=== PATIENT | male | born 1945 | race Caucasian/White ===

== ENCOUNTER 2018-02-03 15:37 | Inpatient (IN) ==
[2018-02-03] MEDS ORDERED: Piperacil/Tazo 3.375 GM Premix 50 ML IV.SIG ONE (17:43)
--- NOTE | 2018-02-03 18:03 | ED ---
HPI General Chief Complaint: Abdominal Pain Stated Complaint: Abd Pain/vomiting/sent by dr Time Seen by Provider: 02/03/18 17:38 Source: patient, family, RN notes reviewed and old records reviewed Mode of arrival: ambulatory Limitations: no limitations History of Present Illness HPI narrative: 72 y/o male presents with abdominal pain and nausea for the past 10 days. He had an abnormal CAT scan and white count as an outpatient was sent here for further care. He provides paperwork that shows his white count was 13.[address] scan of his abdomen showed abnormal subcapsular fluid collection measuring up to 7.3 cm with another inferior to the right liver measuring 3.6 cm. There is induration surrounding fat concerning for infection. Patient denies any other concurrent complaints. Quality pain is sharp. Severity is moderate. He denies specific modifying factors. he takes plavix for his history of CABG, no stents or strokes Related Data Home Medications Medication Instructions Recorded Confirmed aspirin [Aspirin Low Dose] 81 mg PO QPM 01/27/18 02/03/18 clopidogrel [Plavix] 75 mg PO DAILY 01/27/18 02/03/18 coenzyme Q10 [Co Q-10] 100 mg PO QPM 01/27/18 02/03/18 metoprolol tartrate 25 mg PO BID 01/27/18 02/03/18 [id number] acid-lutein [Centrum 1 tab PO DAILY 01/27/18 02/03/18 Silver] niacin [Slo-Niacin] 500 mg PO BID 01/27/18 02/03/18 nitroglycerin 0.4 mg SUBLINGUAL Q5-15M PRN 01/27/18 02/03/18 omega-3 fatty acids-fish oil [Fish 1 cap PO BID 01/27/18 02/03/18 Oil] pregabalin [Lyrica] 100 mg PO BID 01/27/18 02/03/18 simvastatin 5 mg PO Q OTHER DAY 01/27/18 02/03/18 timolol maleate [Timoptic] 1 drp EACH EYE DAILY 02/03/18 02/03/18 Allergies Allergy/AdvReac Type Severity Reaction Status Date / Time Decongestants Allergy Mild Rash Uncoded 02/03/18 17:36 Review of Systems ROS: all other systems reviewed are negative [facility] Medical History Medical History Glaucoma (Acute) HLD (hyperlipidemia) (Acute) HTN (hypertension) (Acute) Mitral regurgitation (Acute) Peripheral neuropathy (Acute) Tricuspid regurgitation (Acute) Surgical History Surgical History Hx of CABG (Acute) Social History Social History Substance History: No History of Abuse Second Hand Smoke Exposure: No Smoking Status: Former smoker How Often Do You Have a Drink Containing Alcohol: 2 to 3 times a week Immunization History Tetanus Immunization: <5 Years Hx Influenza Vaccine This Season: Yes Exam Narrative Exam Narrative: GENERAL: 72 y/o male in no apparent distress SKIN: Focused skin assessment warm/dry. HEAD: Atraumatic. Normocephalic. EYES: Pupils equal and round. No scleral icterus. No injection or drainage. ENT: No nasal bleeding or discharge. Mucous membranes pink and moist. NECK: Trachea midline. CARDIOVASCULAR: Regular rate and rhythm. RESPIRATORY: No accessory muscle use GASTROINTESTINAL: Abdomen soft, ttp in ruq, nondistended. no rebound MUSCULOSKELETAL: No obvious deformities. No clubbing. No cyanosis. NEUROLOGICAL: Awake and alert. Motor grossly within normal limits. Normal speech. PSYCHIATRIC: Appropriate mood and affect; insight and judgment normal. Course Reevaluation(s) Reevaluation #1: Patient updated and agrees to admission Consultations Consultation #1: dr lawler states keep n.p.o. after midnight and will do procedure in the morning. Hold any anticoagulation Consultation #2: dr whyte agrees to admit Initial Documented Vital Signs Temperature 98 F 02/03/18 15:42 Pulse Rate 120 H 02/03/18 15:42 Respiratory Rate 25 H 02/03/18 15:42 Blood Pressure 178/84 H 02/03/18 15:42 Pulse Oximetry 99 02/03/18 15:42 Last Documented Vital Signs Temperature 98 F 02/03/18 15:42 Pulse Rate 110 H 02/03/18 17:34 Respiratory Rate 15 02/03/18 17:34 Blood Pressure 171/93 H 02/03/18 17:34 Pulse Oximetry 95 02/03/18 17:36 Medical Decision Making MDM Narrative Medical decision making narrative: Patient with abnormal CT and leukocytosis as an outpatient will discuss with interventional radiology about possible percutaneous drainage and dose with Zosyn Medical Screen Exam Complete: Yes Emergency Medical Condition: Yes Differential Diagnosis Differential Diagnosis: Abscess, cyst, effusion Lab Data Lab results reviewed: Yes I reviewed the patient's lab results. Result diagrams: 02/03/18 16:44 02/03/18 16:44 Lab Results 02/03/18 02/03/18 02/03/18 Range/Units 16:44 16:44 17:05 WBC 17.7 H (4.0-11.0) th/mm3 RBC 4.00 L (4.50-5.90) mil/mm3 Hgb 13.4 (13.0-17.0) gm/dL Hct 39.2 (39.0-51.0) % MCV 97.9 (80.0-100.0) fL MCH 33.5 (27.0-34.0) pg MCHC 34.2 (32.0-36.0) % RDW 15.0 (11.6-17.2) % Plt Count 517 H D (150-450) th/mm3 MPV 7.9 (7.0-11.0) fL Prelim Diff (Auto) Slide review pending Neut % (Auto) 84.1 H (16.0-70.0) % Lymph % (Auto) 7.4 L (9.0-44.0) % [place] % (Auto) 7.5 (0.0-8.0) % Eos % (Auto) 0.8 (0.0-4.0) % Baso % (Auto) 0.2 (0.0-2.0) % Neut # (Auto) 14.9 H (1.8-7.7) th/mm3 Lymph # (Auto) 1.3 (1.0-4.8) th/mm3 [place] # (Auto) 1.3 H (0.0-0.9) th/mm3 Eos # (Auto) 0.1 (0.0-0.4) th/mm3 Baso # (Auto) 0.0 (0.0-0.2) th/mm3 Differential Comment . Sodium 135 L (136-145) meq/L Potassium 4.7 (3.5-5.1) meq/L Chloride 97 L (98-107) meq/L Carbon Dioxide 26.5 (21.0-32.0) meq/L Anion Gap 12 (5-15) meq/L BUN 16 (7-18) mg/dL Creatinine 1.06 (0.60-1.30) mg/dL Estimated GFR 68 L (>89) mL/min Random Glucose 129 H (74-106) mg/dL Calcium 8.6 (8.5-10.1) mg/dL Total Bilirubin 0.8 (0.2-1.0) mg/dL AST 81 H (15-37) U/L ALT 73 (12-78) U/L Alkaline Phosphatase 136 H (45-117) U/L Total Protein 8.2 (6.4-8.2) g/dL Albumin 2.5 L (3.4-5.0) g/dL Lipase 124 (73-393) U/L Urine Color Yellow (Yellw/Straw) Urine Clarity Hazy H (Clear) Urine pH 5.0 (5.0-8.5) Ur Specific [place] 1.020 (1.002-1.035) Urine Protein Negative (Neg-Trace) mg/dL Urine Glucose (UA) Negative (Negative) mg/dL Urine Ketones Trace H (Negative) mg/dL Urine Occult Blood Negative (Negative) Urine Nitrate Negative (Negative) Urine Bilirubin Negative (Negative) Urine Urobilinogen Less than 2 (Less than 2) mg/dL Ur Leukocyte Esterase Negative (Negative) Urine RBC 1 (0-3) /hpf Urine WBC 1 (0-5) /hpf Ur Squamous Epith Cells <1 (0-5) /hpf Urine Mucus Few H (Occasional) /lpf Micro UA Comment Culture not ind Ur Microscopic Review Not Reportable Urine Culture Comments Culture not ind Discharge Plan Discharge Disposition Patient Disposition: 30 Still Patient Discharge Condition Condition: Stable Discharge Details Diagnosis: Intra-abdominal collection, Leukocytosis Physicians Team ED Provider: Jo Jose Primary Care Provider: UNKNOWN, Rxs /Orders / Referrals /Forms Prescriptions: No Action clopidogrel [Plavix] 75 mg Tablet 75 mg PO DAILY RF: 0 aspirin [Aspirin Low Dose] 81 mg Tablet,Delayed Release (Dr/Ec) 81 mg PO QPM RF: 0 simvastatin 5 mg Tablet 5 mg PO Q OTHER DAY RF: 0 nitroglycerin 0.4 mg Tablet, Sublingual 0.4 mg SUBLINGUAL Q5-15M PRN (Reason: Chest Pain) RF: 0 coenzyme Q10 [Co Q-10] 100 mg Capsule 100 mg PO QPM RF: 0 metoprolol tartrate 25 mg Tablet 25 mg PO BID RF: 0 pregabalin [Lyrica] 100 mg Capsule 100 mg PO BID RF: 0 omega-3 fatty acids-fish oil [Fish Oil] 360-1,200 mg Capsule 1 cap PO BID RF: 0 niacin [Slo-Niacin] 500 mg Tablet Extended Release 500 mg PO BID RF: 0 [id number]-[id number] acid-lutein [Centrum Silver] 400-250 mcg Tablet,Chewable 1 tab PO DAILY RF: 0 timolol maleate [Timoptic] 0.5 % Drops 1 drp EACH EYE DAILY RF: 0 Status ED Status: Admitted Patient
[2018-02-03 18:04] LABS: Baso % (Auto) 0.2 % (0.0-2.0); Eos # (Auto) 0.1 th/mm3 (0.0-0.4); Eos % (Auto) 0.8 % (0.0-4.0); Hematocrit 39.2 % (39.0-51.0); Hemoglobin 13.4 gm/dL (13.0-17.0); Lymph # (Auto) 1.3 th/mm3 (1.0-4.8); Lymph % (Auto) 7.4 % (9.0-44.0); Mean Corpuscular HGB Conc 34.2 % (32.0-36.0); Mean Corpuscular Hemoglobin 33.5 pg (27.0-34.0); Mean Corpuscular Volume 97.9 fL (80.0-100.0); Mean Platelet Volume 7.9 fL (7.0-11.0); Mono # (Auto) 1.3 th/mm3 (0.0-0.9); Mono % (Auto) 7.5 % (0.0-8.0); Neut # (Auto) 14.9 th/mm3 (1.8-7.7); Neut % (Auto) 84.1 % (16.0-70.0); Platelet Count 517 th/mm3 (150-450); White Blood Count 17.7 th/mm3 (4.0-11.0)
[2018-02-03 18:17] LABS: Bilirubin,Urine Negative (Negative); Clarity,Urine Hazy (Clear); Color,Urine Yellow (Yellw/Straw); Glucose,Urine (UA) Negative (Negative); Leukocyte Esterase,Urine Negative (Negative); Mucus,Urine Few /lpf (Occasional); Nitrite,Urine Negative (Negative); Squamous Epithelial Cell,Urine <1 /hpf (0-5)
[2018-02-03 18:23] LABS: Alkaline Phosphatase 136 U/L (45-117); Total Protein 8.2 g/dL (6.4-8.2)
[2018-02-03 18:32] LABS: Alanine Aminotransferase 73 U/L (12-78); Albumin 2.5 g/dL (3.4-5.0); Anion Gap 12 meq/L (5-15); Blood Urea Nitrogen 16 mg/dL (7-18); Calcium 8.6 mg/dL (8.5-10.1); Carbon Dioxide 26.5 meq/L (21.0-32.0); Chloride 97 meq/L (98-107); Glomerular Filtration Rate 68 mL/min (>89); Glucose,Random 129 mg/dL (74-106); Lipase 124 U/L (73-393); Sodium 135 meq/L (136-145)
[2018-02-03 18:33] LABS: Aspartate Aminotransferase 81 U/L (15-37); Potassium 4.7 meq/L (3.5-5.1)
[2018-02-03 19:21] LABS: Platelet Morphology Normal (Normal)
[2018-02-03 19:22] LABS: Toxic Granulation 2+
[2018-02-03] MEDS ORDERED: Morphine Inj 4 MG/ML Vial IV.PUSH PRN (19:30)
[2018-02-03] MEDS ORDERED: Acetaminophen 325 MG Tablet PO PRN (19:30)
--- NOTE | 2018-02-03 20:05 | P.HP ---
History of Present Illness Service: [facility] Primary Care Physician: UNKNOWN History of Present Illness: 72-year-old male with a past medical history significant for coronary artery disease, hypertension, hyperlipidemia and neuropathy presents to the emergency department for evaluation of an abnormal CT scan. Patient reports that approximately 10 days ago after attending a barbecue he had abdominal cramping and pain that has been persistent since that time. He reports his pain is sometimes in his right upper quadrant and sometimes in other areas of his abdomen and that it often will radiate to his right flank. He reports nausea and vomiting. Also complains of night sweats. He has had a low-grade fever for the past week. He was seen by his primary care provider who ordered outpatient labs and a CT scan however the patient underwent cardiac catheterization 1 week ago prior to completing these tests. Outpatient CT scan performed today concerning for 2 liver abscesses. Laboratory values significant for leukocytosis. Patient denies chest pain or shortness of breath. No lateralizing signs/symptoms. Inpatient Certification: I certify that the inpatient services were ordered in accordance with Medicare regulations governing the order. This includes certification that hospital inpatient services are reasonable and necessary and in the case of services not specified as inpatient-only under 42 CFR 419.22(n), that they are appropriately provided as inpatient services in accordance to with the 2-midnight benchmark under 43 CFR 412.3(e) Estimated Total Length of Stay (Days): 3 Plans for Post Hospital Care: Home Review of Systems All other systems reviewed negative except as stated [facility] - History History Provided By: Patient - Medical History Medical History: Medical History (Last Updated 02/03/18 @ 19:57 by Caitlyn Borrero MD) Coronary artery disease Glaucoma HLD (hyperlipidemia) HTN (hypertension) Mitral regurgitation Peripheral neuropathy Tricuspid regurgitation - Surgical History Surgical History: Surgical History (Last Updated 02/03/18 @ 19:58 by Caitlyn Borrero MD) History of appendectomy History of cataract surgery History of foot surgery History of tonsillectomy Hx of CABG - Family History Family History: Family History (Last Updated 02/03/18 @ 19:58 by Caitlyn Borrero MD) Other Coronary artery disease - Tobacco History Second Hand Smoke Exposure: No Tobacco Use In Past 30 Days: No Smoking Status: Former smoker - Alcohol History How Often Do You Have a Drink Containing Alcohol: 2 to 3 times a week - Substance Use History Substance History: No History of Abuse - Immunization History Tetanus Immunization: <5 Years Hx Influenza Vaccine This Season: Yes Medications and Allergies Active Medications: Active Medications Acetaminophen (Tylenol) 650 mg PO Q4H PRN PRN Reason: PAIN SCALE 1 TO 5 Atorvastatin Calcium (Lipitor) 20 mg PO HS JOLEEN Piperacillin/Tazobactam/Dextrose (Zosyn 3.375 Gm Premix) 50 mls @ 100 mls/hr IV.SIG Q6H JOLEEN Sodium Chloride (Ns Inj) 1,000 mls @ 100 mls/hr IV.CONT .Q10H JOLEEN Metoprolol Tartrate (Lopressor) 25 mg PO BID JOLEEN Morphine Sulfate (Morphine Inj) 2 mg IV.PUSH Q4H PRN PRN Reason: PAIN SCALE 6 TO 10 Ondansetron HCl (Zofran Inj) 4 mg IV.PUSH Q8H PRN PRN Reason: NAUSEA Allergies Allergy/AdvReac Type Severity Reaction Status Date / Time Decongestants Allergy Mild Rash Uncoded 02/03/18 17:36 Home Medications Medication Instructions Recorded Confirmed Type aspirin [Aspirin Low Dose] 81 mg PO QPM 01/27/18 02/03/18 History clopidogrel [Plavix] 75 mg PO DAILY 01/27/18 02/03/18 History coenzyme Q10 [Co Q-10] 100 mg PO QPM 01/27/18 02/03/18 History metoprolol tartrate 25 mg PO BID 01/27/18 02/03/18 History [id number]-[id number]-byosl acid-lutein [Centrum 1 tab PO DAILY 01/27/18 02/03/18 History Silver] niacin [Slo-Niacin] 500 mg PO BID 01/27/18 02/03/18 History nitroglycerin 0.4 mg SUBLINGUAL Q5-15M PRN 01/27/18 02/03/18 History omega-3 fatty acids-fish oil [Fish 1 cap PO BID 01/27/18 02/03/18 History Oil] pregabalin [Lyrica] 100 mg PO BID 01/27/18 02/03/18 History simvastatin 5 mg PO Q OTHER DAY 01/27/18 02/03/18 History timolol maleate [Timoptic] 1 drp EACH EYE DAILY 02/03/18 02/03/18 History Exam Vital signs: Vital Signs 02/03/18 15:42 02/03/18 15:46 02/03/18 17:34 Temperature 98 F Pulse Rate 120 H 112 H 110 H Respiratory Rate 25 H 16 15 Blood Pressure 178/84 H 192/97 H 171/93 H Pulse Oximetry 99 96 95 02/03/18 17:36 Temperature Pulse Rate Respiratory Rate Blood Pressure Pulse Oximetry 95 Intake & Output 02/03/18 02/03/18 02/04/18 06:59 18:59 06:59 Intake Total 50 / 50 Balance 50 / 50 Weight 84.368 kg Intake: IV 50 / 50 Zosyn 3.375 GM Premix 50 ML @ 50 / 50 100 mls/hr IV.SIG ONCE ONE Rx#: [id number] Narrative: Gen.: No acute distress Head: Normocephalic. Atraumatic. EENT: Pupils equal round and reactive to light. Nose without drainage. Airway intact. Throat without injection. Cardiovascular: Regular rate and rhythm. No murmurs, rubs or gallops. Respiratory: Lungs clear to auscultation bilaterally. No wheezes or rhonchi. Abdomen: Soft, nontender, nondistended. No peritoneal signs. Mild to moderate right upper quadrant pain with deep palpation. Musculoskeletal: No gross deformities. No edema. Skin: No obvious rashes or erythema. Neuro: Sensory and motor grossly intact. Cranial nerves II through XII grossly intact. Results - Labs CBC & Chem 7: 02/03/18 16:44 02/03/18 16:44 Labs: Laboratory Results - last 24 hr 02/03/18 02/03/18 02/03/18 16:44 16:44 17:05 WBC 17.7 H RBC 4.00 L Hgb 13.4 Hct 39.2 MCV 97.9 MCH 33.5 MCHC 34.2 RDW 15.0 Plt Count 517 H D MPV 7.9 Prelim Diff (Auto) Slide review pending Neut % (Auto) 84.1 H Lymph % (Auto) 7.4 L [place] % (Auto) 7.5 Eos % (Auto) 0.8 Baso % (Auto) 0.2 Neut # (Auto) 14.9 H Lymph # (Auto) 1.3 [place] # (Auto) 1.3 H Eos # (Auto) 0.1 Baso # (Auto) 0.0 WBC Differential . Diff Scan Auto diff confirmed Differential Comment . Toxic Granulation 2+ H Platelet Estimate High H Platelet Morphology Normal Sodium 135 L Potassium 4.7 Chloride 97 L Carbon Dioxide 26.5 Anion Gap 12 BUN 16 Creatinine 1.06 Estimated GFR 68 L Random Glucose 129 H Lactic Acid Calcium 8.6 Total Bilirubin 0.8 AST 81 H ALT 73 Alkaline Phosphatase 136 H Total Protein 8.2 Albumin 2.5 L Lipase 124 Urine Color Yellow Urine Clarity Hazy H Urine pH 5.0 Ur Specific [place] 1.020 Urine Protein Negative Urine Glucose (UA) Negative Urine Ketones Trace H Urine Occult Blood Negative Urine Nitrate Negative Urine Bilirubin Negative Urine Urobilinogen Less than 2 Ur Leukocyte Esterase Negative Urine RBC 1 Urine WBC 1 Ur Squamous Epith Cells <1 Urine Mucus Few H Micro UA Comment Culture not ind Ur Microscopic Review Not Reportable Urine Culture Comments Culture not ind 02/03/18 18:15 WBC RBC Hgb Hct MCV MCH MCHC RDW Plt Count MPV Prelim Diff (Auto) Neut % (Auto) Lymph % (Auto) [place] % (Auto) Eos % (Auto) Baso % (Auto) Neut # (Auto) Lymph # (Auto) [place] # (Auto) Eos # (Auto) Baso # (Auto) WBC Differential Diff Scan Differential Comment Toxic Granulation Platelet Estimate Platelet Morphology Sodium Potassium Chloride Carbon Dioxide Anion Gap BUN Creatinine Estimated GFR Random Glucose Lactic Acid 1.0 Calcium Total Bilirubin AST ALT Alkaline Phosphatase Total Protein Albumin Lipase Urine Color Urine Clarity Urine pH Ur Specific [place] Urine Protein Urine Glucose (UA) Urine Ketones Urine Occult Blood Urine Nitrate Urine Bilirubin Urine Urobilinogen Ur Leukocyte Esterase Urine RBC Urine WBC Ur Squamous Epith Cells Urine Mucus Micro UA Comment Ur Microscopic Review Urine Culture Comments Caprini VTE Risk Assessment Caprini VTE Risk Assessment: Moderate/High Risk (score >= 2) Caprini Risk Assessment Model: Point Value = 1 Point Value = 2 Point Value = 3 Point Value = 5 Age 41-60 Minor surgery BMI > 25 kg/m2 Swollen legs Varicose veins or History of unexplained or recurrent spontaneous Oral contraceptives or hormone replacement Sepsis (< 1 month) Serious lung disease, including pneumonia (< 1 month) Abnormal pulmonary function Acute myocardial infarction Congestive heart failure (< 1 month) History of inflammatory bowel disease Medical patient at bed rest Age 61-74 Arthroscopic surgery Major open surgery (> 45 min) Laparoscopic surgery (> 45 min) Malignancy Confined to bed (> 72 hours) Immobilizing plaster cast Central venous access Age >= 75 History of VTE Family history of VTE Factor V Leiden Prothrombin [id number] Lupus anticoagulant Anticardiolipin antibodies Elevated serum homocysteine Heparin-induced thrombocytopenia Other congenital or acquired thrombophilia Stroke (< 1 month) Elective arthroplasty Hip, pelvis, or leg fracture Acute spinal cord injury (< 1 month) Prophylaxis Regimen: Total Risk Factor Score Risk Level Prophylaxis Regimen 0-1 Low Early ambulation 2 Moderate Order ONE of the following: *Sequential Compression Device (SCD) *Heparin 5000 units SQ BID 3-4 Higher Order ONE of the following medications: *Heparin 5000 units SQ TID *Enoxaparin/Lovenox 40 mg SQ daily (WT < 150 kg, CrCl > 30 mL/min) *Enoxaparin/Lovenox 30 mg SQ daily (WT < 150 kg, CrCl > 10-29 mL/min) *Enoxaparin/Lovenox 30 mg SQ BID (WT < 150 kg, CrCl > 30 mL/min) AND/OR *Sequential Compression Device (SCD) 5 or more Highest Order ONE of the following medications: *Heparin 5000 units SQ TID (Preferred with Epidurals) *Enoxaparin/Lovenox 40 mg SQ daily (WT < 150 kg, CrCl > 30 mL/min) *Enoxaparin/Lovenox 30 mg SQ daily (WT < 150 kg, CrCl > 10-29 mL/min) *Enoxaparin/Lovenox 30 mg SQ BID (WT < 150 kg, CrCl > 30 mL/min) AND *Sequential Compression Device (SCD) Assessment and Plan - Plan Assessment/plan: 1. Liver abscess/leukocytosis CT of the abdomen/pelvis performed today at outside facility significant for abnormal subcapsular fluid collection along the lateral aspect of segment 6 measuring up to 7.3 cm. There is an additional higher density collection inferior to the tip of the right liver that measures up to 3.6 cm. There is mild induration of the surrounding fat raising suspicion for inflammation and possibly infection. There is trace fluid along the medial right liver margin as well. The 2 loculated fluid collections could be the source of the patient' s pain in appearance and suspected inflammatory changes could indicate an infectious process. Interventional radiology consulted for abscess drainage Zosyn 2. Coronary artery disease Patient underwent cardiac catheterization without intervention 1 week ago Holding aspirin and Plavix for percutaneous drainage tomorrow 3. Hypertension/hyperlipidemia Continue home metoprolol/atorvastatin FEN N.p.o. Electrolytes: Monitor and replete as needed S at 100 cc/hour Holding pharmacologic anticoagulation for percutaneous drainage tomorrow
[2018-02-03] MEDS ORDERED: Vancomycin Inj 1 GM/200 ML PIGGYBACK IV.SIG SCH (21:00)
[2018-02-03] MEDS ORDERED: Metoprolol Tartrate 25 MG Tablet PO SCH (21:00)
[2018-02-03] MEDS: Sod Chloride 0.9% Inj 1,000 ML IV.CONT SCH (21:49)
[2018-02-03] MEDS: Metoprolol Tartrate 25 MG Tablet PO SCH (21:50)
[2018-02-03] MEDS: Vancomycin Inj 1,000 MG in Sodium Chlor 0.9% Inj 250 ML IV.SIG SCH (21:50)
[2018-02-03] MEDS: Piperacil/Tazo 3.375 GM Premix 50 ML IV.SIG SCH (23:49)
[2018-02-04] MEDS: Piperacil/Tazo 3.375 GM Premix 50 ML IV.SIG SCH ×4 (05:33→23:07)
[2018-02-04] MEDS: Sod Chloride 0.9% Inj 1,000 ML IV.CONT SCH ×2 (06:09→16:00)
[2018-02-04] MEDS: Metoprolol Tartrate 25 MG Tablet PO SCH ×2 (09:00→20:23)
[2018-02-04] MEDS: Timolol 0.5% Drops 5 ML Bottle EACH EYE SCH (09:00)
[2018-02-04] MEDS ORDERED: Lidocaine 1%/Epinephrine 1:100,000 Inj 20 ML Vial ONE (10:05)
[2018-02-04] MEDS ORDERED: fentaNYL Citrate Inj 250 MCG/5 ML Ampul ONE (10:11)
--- NOTE | 2018-02-04 12:34 | P.RAD ---
Post CT Procedure Prog Note - Procedure Information Procedure Date: 02/04/18 Supervising Radiologist: Barrera Collins Jr, MD Proceduralist/Assist: Kymberly Anesthesia: Conscious Sedation - Plan of Activity Patient to Unit: ROPU Patient condition: Good See PACS Report for procedural detail/treatment. Drainage Procedure CT Abscess Drainage Placement Albanian Tube Size: 8 Drainage: Suction Fluid Description: Purulent Findings: CT guided intrahepatic abscess drainage cath placement with 100mL of purulent material obtained. Sample to micro. Plan: follow output.
--- NOTE | 2018-02-04 16:53 | CT ---
EXAM DATE: 02/04/2018 5:48 PM EDT AGE/SEX: 72 years / Male INDICATIONS: Liver abscess. CLINICAL DATA: This is the patient's initial encounter. Patient reports that signs and symptoms have been present for 1 day and indicates a pain score of 0/10. MEDICAL/SURGICAL HISTORY: Hypertension. Cardiovascular disease. Appendectomy. CABG. COMPARISON: . BIOPSY SITE: liver abscess MEDICATION(S): 3mg midazolam (Versed) IV 150mcg fentanyl (Sublimaze) IV DEVICE(S): 8 Fr Skater FLUID: Total volume of 125 of cloudy, yellow fluid was removed. Fluid was sent to lab for ordered studies.. . . PROCEDURE : CT guided drainage of the liver abscess. The risks, benefits and alternatives to the procedure were explained and verbal and written consent w as obtained. Using automated exposure control and adjustment of the mA and/or kV according to patient size, radiation dose was kept as low as reasonably achievable to obtain optimal diagnostic quality i mages. The site was prepped in sterile fashion. Full sterile technique was used, including cap, ma sk, sterile gloves and gown and a large sterile sheet. Hand hygiene and 2% chlorhexidine and/or beta dine/alcohol prep was utilized per protocol for cutaneous antisepsis. The skin and subcutaneous tiss ues were infiltrated with local anesthetic solution. DICOM format image data is available electronic ally for review and comparison. Using CT guidance the intrahepatic abscess was identified within the lateral inferior right lobe. Thi s is within segment 6. This measures 6.4 x 4.6 cm Drainage was performed using the prescribed cathete r. The patient tolerated the procedure well and there were no complications. The patient tolerated the procedure well and there were no complications. The patient was sent to post anesthesia recovery in s table condition. CONCLUSION: 1. Uncomplicated CT guided drainage of an intrahepatic abscess yielding just over 100 mL of purulent material. Samples were sent to the lab.. Electronically signed by: Barrera Collins MD 02/04/2018 4:52 PM EDT
--- NOTE | 2018-02-04 16:56 | P.PNIM ---
Subjective Interval history: Patient complaining of pain on his right side after the procedure. He does not have any other complaints. Physical Exam Vital signs: Vital Signs 02/03/18 17:34 02/03/18 17:36 02/03/18 19:00 Temperature Pulse Rate 110 H Respiratory Rate 15 Blood Pressure 171/93 H Pulse Oximetry 95 95 97 02/03/18 22:21 02/03/18 23:00 02/04/18 00:45 Temperature 99.4 F Pulse Rate 95 H 101 H Respiratory Rate 18 18 Blood Pressure 170/79 H 191/90 H 159/76 H Pulse Oximetry 98 96 02/04/18 03:31 02/04/18 08:00 02/04/18 12:50 Temperature 100 F H 98.9 F 99 F Pulse Rate 95 H 99 H 85 Respiratory Rate 18 20 20 Blood Pressure 171/79 H 170/85 H 140/69 Pulse Oximetry 94 L 94 L 96 02/04/18 13:20 02/04/18 13:50 02/04/18 14:00 Temperature 99.1 F 99.1 F 97.9 F Pulse Rate 90 86 84 Respiratory Rate 20 20 20 Blood Pressure 147/83 H 138/80 166/85 H Pulse Oximetry 95 95 97 Intake & Output 02/03/18 02/04/18 02/04/18 18:59 06:59 18:59 Intake Total 50 / 50 1350 / 1350 Output Total 2 / 2 Balance 50 / 50 1350 / 1350 -2 / -2 Weight 84.368 kg 84.3 kg Intake: IV 50 / 50 1350 / 1350 NS Inj 1,000 ML @ 100 mls/hr IV 1000 / 1000 .CONT .Q10H JOLEEN Rx#:[id number] Zosyn 3.375 GM Premix 50 ML @ 50 / 50 100 / 100 100 mls/hr IV.SIG Q6H JOLEEN Rx#: [id number] Vancomycin Inj 1,000 MG In NS 250 / 250 Inj 250 ML @ 250 mls/hr IV.SIG Q24H JOLEEN Rx#:[id number] Oral 0 / 0 Output: Urine 2 / 2 Other: # Voids 2 Date of Last Bowel Movement 02/02/18 # Bowel Movements 0 Narrative: General patient is in mild distress complains of right sided pain near the procedure site. HEENT extraocular movements are intact, clear oropharyngeal mucosa, no JVD Cardiovascular S1-S2 audible, RRR, no murmurs rubs or gallops Respiratory clear to auscultation bilaterally Abdomen soft, normal bowel sounds, drain is in place on the right side. Extremities no edema 2+ distal pulses in bilateral upper and lower extremities Neuro cranial nerves II through XII intact Results - Labs CBC & Chem 7: 02/03/18 16:44 02/03/18 16:44 Laboratory Results - last 24 hr 02/03/18 02/03/18 02/03/18 16:44 16:44 17:05 WBC 17.7 H RBC 4.00 L Hgb 13.4 Hct 39.2 MCV 97.9 MCH 33.5 MCHC 34.2 RDW 15.0 Plt Count 517 H D MPV 7.9 Prelim Diff (Auto) Slide review pending Neut % (Auto) 84.1 H Lymph % (Auto) 7.4 L [place] % (Auto) 7.5 Eos % (Auto) 0.8 Baso % (Auto) 0.2 Neut # (Auto) 14.9 H Lymph # (Auto) 1.3 [place] # (Auto) 1.3 H Eos # (Auto) 0.1 Baso # (Auto) 0.0 WBC Differential . Diff Scan Auto diff confirmed Differential Comment . Toxic Granulation 2+ H Platelet Estimate High H Platelet Morphology Normal Sodium 135 L Potassium 4.7 Chloride 97 L Carbon Dioxide 26.5 Anion Gap 12 BUN 16 Creatinine 1.06 Estimated GFR 68 L Random Glucose 129 H Lactic Acid Calcium 8.6 Total Bilirubin 0.8 AST 81 H ALT 73 Alkaline Phosphatase 136 H Total Protein 8.2 Albumin 2.5 L Lipase 124 Urine Color Yellow Urine Clarity Hazy H Urine pH 5.0 Ur Specific [place] 1.020 Urine Protein Negative Urine Glucose (UA) Negative Urine Ketones Trace H Urine Occult Blood Negative Urine Nitrate Negative Urine Bilirubin Negative Urine Urobilinogen Less than 2 Ur Leukocyte Esterase Negative Urine RBC 1 Urine WBC 1 Ur Squamous Epith Cells <1 Urine Mucus Few H Micro UA Comment Culture not ind Ur Microscopic Review Not Reportable Urine Culture Comments Culture not ind 02/03/18 18:15 WBC RBC Hgb Hct MCV MCH MCHC RDW Plt Count MPV Prelim Diff (Auto) Neut % (Auto) Lymph % (Auto) [place] % (Auto) Eos % (Auto) Baso % (Auto) Neut # (Auto) Lymph # (Auto) [place] # (Auto) Eos # (Auto) Baso # (Auto) WBC Differential Diff Scan Differential Comment Toxic Granulation Platelet Estimate Platelet Morphology Sodium Potassium Chloride Carbon Dioxide Anion Gap BUN Creatinine Estimated GFR Random Glucose Lactic Acid 1.0 Calcium Total Bilirubin AST ALT Alkaline Phosphatase Total Protein Albumin Lipase Urine Color Urine Clarity Urine pH Ur Specific [place] Urine Protein Urine Glucose (UA) Urine Ketones Urine Occult Blood Urine Nitrate Urine Bilirubin Urine Urobilinogen Ur Leukocyte Esterase Urine RBC Urine WBC Ur Squamous Epith Cells Urine Mucus Micro UA Comment Ur Microscopic Review Urine Culture Comments Microbiology 02/03/18 21:35 Blood - Peripheral Aerobic Blood Culture - Preliminary No growth in 1 day 02/03/18 21:35 Blood - Peripheral Anaerobic Blood Culture - Preliminary No growth in 1 day 02/03/18 21:30 Blood - Peripheral Aerobic Blood Culture - Preliminary No growth in 1 day 02/03/18 21:30 Blood - Peripheral Anaerobic Blood Culture - Preliminary No growth in 1 day - Imaging Impressions Abscess Drainage CT 02/04/18 17:48 CONCLUSION: 1. Uncomplicated CT guided drainage of an intrahepatic abscess yielding just over 100 mL of purulent material. Samples were sent to the lab.. Assessment and Plan - Plan 72-year-old male with a past medical history significant for coronary artery disease, coronary artery bypass graft, hypertension, hyperlipidemia and neuropathy presents to the emergency department for evaluation of an abnormal CT scan. 1. Sepsis secondary to liver abscess/leukocytosis CT of the abdomen/pelvis performed yesterday at outside facility significant for abnormal subcapsular fluid collection along the lateral aspect of segment 6 measuring up to 7.3 cm. There is an additional higher density collection inferior to the tip of the right liver that measures up to 3.6 cm. The patient had elevation in his WBC count was also complaining of subjective fevers. He has a documented fever on admission as well. He was also found to be tachycardic. IR was consulted to evaluate the patient for abscess drainage which was performed today and 100 mL of brownish fluid was drained. A drain is currently in place. Continue IV antibiotics. [place] and IV morphine as needed for pain. Will follow up with infectious disease for further recommendations. Patient started on a diet. 2. Coronary artery disease and history of CABG. Aspirin and Plavix are currently on hold. We will restart these medications if it is okay with interventional radiology and there is no signs of active bleeding. 3. Hypertension/hyperlipidemia Continue home metoprolol/atorvastatin Holding pharmacotherapy for DVT prophylaxis as the patient had a procedure done today.
[2018-02-04] MEDS: Morphine Sulfate Inj 2 MG/ML Vial IV.PUSH PRN (17:27)
[2018-02-04] MEDS: Vancomycin Inj 1,000 MG in Sodium Chlor 0.9% Inj 250 ML IV.SIG SCH (20:24)
[2018-02-05] MEDS: Sod Chloride 0.9% Inj 1,000 ML IV.CONT SCH ×3 (03:06→23:07)
[2018-02-05] MEDS: Morphine Sulfate Inj 2 MG/ML Vial IV.PUSH PRN ×2 (03:59→23:16)
[2018-02-05] MEDS: Piperacil/Tazo 3.375 GM Premix 50 ML IV.SIG SCH ×4 (05:13→23:17)
[2018-02-05 05:30] LABS: Baso # (Auto) 0.1 th/mm3 (0.0-0.2); Baso % (Auto) 0.6 % (0.0-2.0); Eos # (Auto) 0.3 th/mm3 (0.0-0.4); Eos % (Auto) 3.3 % (0.0-4.0); Hematocrit 33.1 % (39.0-51.0); Hemoglobin 11.4 gm/dL (13.0-17.0); Lymph # (Auto) 1.2 th/mm3 (1.0-4.8); Lymph % (Auto) 14.8 % (9.0-44.0); Mean Corpuscular HGB Conc 34.4 % (32.0-36.0); Mean Corpuscular Volume 98.8 fL (80.0-100.0); Mean Platelet Volume 7.5 fL (7.0-11.0); Mono # (Auto) 0.9 th/mm3 (0.0-0.9); Mono % (Auto) 11.2 % (0.0-8.0); Neut # (Auto) 5.7 th/mm3 (1.8-7.7); Neut % (Auto) 70.1 % (16.0-70.0); Platelet Count 446 th/mm3 (150-450); Red Blood Count 3.35 mil/mm3 (4.50-5.90); Red Cell Distribution Width 14.8 % (11.6-17.2); White Blood Count 8.2 th/mm3 (4.0-11.0)
[2018-02-05 05:54] LABS: Calcium 8.4 mg/dL (8.5-10.1); Carbon Dioxide 25.5 meq/L (21.0-32.0); Magnesium 2.5 mg/dL (1.5-2.5)
[2018-02-05] MEDS: Timolol 0.5% Drops 5 ML Bottle EACH EYE SCH (09:07)
[2018-02-05] MEDS: Metoprolol Tartrate 25 MG Tablet PO SCH ×2 (09:07→20:52)
--- NOTE | 2018-02-05 18:37 | P.PNIM ---
Subjective Interval history: Mild pain on the right side. He does not have any other complaints. Physical Exam Vital signs: Vital Signs 02/04/18 20:00 02/05/18 00:00 02/05/18 04:00 Temperature 98.9 F 97.6 F 97.7 F Pulse Rate 81 76 79 Respiratory Rate 15 16 16 Blood Pressure 173/80 H 138/75 179/90 H Pulse Oximetry 96 94 L 95 02/05/18 08:00 02/05/18 12:00 02/05/18 16:29 Temperature 97.9 F 97.3 F L 97.8 F Pulse Rate 86 77 63 Respiratory Rate 20 20 20 Blood Pressure 156/89 H 169/80 H 156/74 H Pulse Oximetry 95 95 94 L Intake & Output 02/04/18 02/05/18 02/05/18 18:59 06:59 18:59 Intake Total 520 / 520 650 / 650 Output Total 5 / 5 935 / 935 225 / 225 Balance -5 / -5 -415 / -415 425 / 425 Intake: IV 400 / 400 50 / 50 Zosyn 3.375 GM Premix 50 ML @ 150 / 150 50 / 50 100 mls/hr IV.SIG Q6H JOLEEN Rx#: [id number] Vancomycin Inj 1,000 MG In NS 250 / 250 Inj 250 ML @ 250 mls/hr IV.SIG Q24H JOLEEN Rx#:[id number] Oral 120 / 120 600 / 600 Output: Urine 5 / 5 850 / 850 225 / 225 Wound Drainage 85 / 85 Right Anterior Abdomen 85 / 85 Other: # Voids 2 Date of Last Bowel Movement 02/02/18 02/05/18 # Bowel Movements 1 Narrative: General patient is in mild distress complains of right sided pain near the procedure site. Otherwise no complaints. HEENT extraocular movements are intact, clear oropharyngeal mucosa, no JVD Cardiovascular S1-S2 audible, RRR, no murmurs rubs or gallops Respiratory clear to auscultation bilaterally Abdomen soft, normal bowel sounds, drain is in place on the right side. Extremities no edema 2+ distal pulses in bilateral upper and lower extremities Neuro cranial nerves II through XII intact Results - Labs CBC & Chem 7: 02/05/18 04:36 02/05/18 04:36 Laboratory Results - last 24 hr 02/05/18 02/05/18 04:36 04:36 WBC 8.2 RBC 3.35 L Hgb 11.4 L D Hct 33.1 L MCV 98.8 MCH 34.0 MCHC 34.4 RDW 14.8 Plt Count 446 MPV 7.5 Neut % (Auto) 70.1 H Lymph % (Auto) 14.8 [place] % (Auto) 11.2 H Eos % (Auto) 3.3 Baso % (Auto) 0.6 Neut # (Auto) 5.7 Lymph # (Auto) 1.2 [place] # (Auto) 0.9 Eos # (Auto) 0.3 Baso # (Auto) 0.1 WBC Differential . Differential Comment Auto diff final Sodium 141 Potassium 4.0 Chloride 105 D Carbon Dioxide 25.5 Anion Gap 11 BUN 12 Creatinine 0.87 Estimated GFR 86 L Random Glucose 94 Calcium 8.4 L Magnesium 2.5 Microbiology 02/04/18 12:15 Fluid - Other Gram Stain - Final 02/04/18 12:15 Fluid - Other Body Fluid Culture - Preliminary 02/03/18 21:35 Blood - Peripheral Aerobic Blood Culture - Preliminary No growth in 2 days 02/03/18 21:35 Blood - Peripheral Anaerobic Blood Culture - Preliminary No growth in 2 days 02/03/18 21:30 Blood - Peripheral Aerobic Blood Culture - Preliminary No growth in 2 days 02/03/18 21:30 Blood - Peripheral Anaerobic Blood Culture - Preliminary No growth in 2 days Assessment and Plan - Plan 72-year-old male with a past medical history significant for coronary artery disease, coronary artery bypass graft, hypertension, hyperlipidemia and neuropathy presents to the emergency department for evaluation of an abnormal CT scan. 1. Sepsis secondary to liver abscess/leukocytosis The patient has remained afebrile for 24 hours now. WBC count has down trended. CT of the abdomen/pelvis performed yesterday at outside facility significant for abnormal subcapsular fluid collection along the lateral aspect of segment 6 measuring up to 7.3 cm. There is an additional higher density collection inferior to the tip of the right liver that measures up to 3.6 cm. IR was consulted to evaluate the patient for abscess drainage which was performed today and 100 mL of brownish fluid was drained. A drain is currently in place. Preliminary report from the culture of the drainage shows gram-positive cocci. Continue IV antibiotics. [place] and IV morphine as needed for pain. Will follow up with infectious disease for further recommendations. I will also follow-up with interventional radiology for management of the drain. Patient had a drop in hemoglobin from 13 to around 11. We will follow-up in a.m. labs and monitor the patient's hemoglobin. Patient started on a diet. 2. Coronary artery disease and history of CABG. Aspirin and Plavix are currently on hold. The patient had a drop in hemoglobin by two-points. If there is no significant drop in the patient's hemoglobin tomorrow aspirin and Plavix will need to be restarted given the patient's history of CABG. 3. Hypertension/hyperlipidemia Continue home metoprolol/atorvastatin Holding pharmacotherapy for DVT prophylaxis as the patient had a procedure done recently.
--- NOTE | 2018-02-05 20:08 | P.CONID ---
History of Present Illness Service: ID Consult date: 02/05/18 Requesting Physician: Massimo Poe Reason for Consult: Sepsis with Hepatic abscesses s/p IR drainage Primary Care Provider: UNKNOWN History of Present Illness: 72 yo male with a past medical history significant for coronary artery disease , hypertension, hyperlipidemia and neuropathy presents to the emergency department for evaluation of an abnormal CT scan. 10 days prior to admission he abdominal cramping and pain . He is endorsing nausea and vomiting, night sweats and a low-grade fever . Outpatient CT scan performed today concerning for 2 liver abscesses. He has low grade fever up to 100F Laboratory values significant for leukocytosis of 17.[address] guided drainage of an intrahepatic abscess yielding just over 100 mL of purulent material, GPC on G stain No travel history Colonoscopy in 2013 (screening ) - wnl per pt No change in bowell habits, weight loss or blood in the stool Review of Systems All other systems reviewed negative except as stated in HPI PMFSH - History History Provided By: Patient - Medical History Medical History: Medical History (Last Reviewed 02/05/18 @ 20:00 by Laura Triana MD) Coronary artery disease Glaucoma HLD (hyperlipidemia) HTN (hypertension) Mitral regurgitation Peripheral neuropathy Tricuspid regurgitation - Surgical History Surgical History: Surgical History (Last Reviewed 02/05/18 @ 20:00 by Laura Triana MD) History of appendectomy History of cataract surgery History of foot surgery History of tonsillectomy Hx of CABG - Family History Family History: Family History (Last Reviewed 02/05/18 @ 20:00 by Laura Triana MD) Other Coronary artery disease - Social History I have reviewed the patient's Social History: Yes - Tobacco History Second Hand Smoke Exposure: No Tobacco Use In Past 30 Days: No Smoking Status: Former smoker Tobacco Type: Cigarettes - Alcohol History How Often Do You Have a Drink Containing Alcohol: 2 to 3 times a week - Substance Use History Substance History: No History of Abuse - Immunization History Tetanus Immunization: <5 Years Hx Influenza Vaccine This Season: Yes Medications and Allergies Active Medications: Active Medications Hydrocodone Bitart/Acetaminophen ([place] 5/325) 1 tab PO Q4H PRN PRN Reason: PAIN SCALE 1 TO 5 Last Admin: 02/05/18 07:43 Dose: 1 tab Atorvastatin Calcium (Lipitor) 20 mg PO HS JOLEEN Last Admin: 02/04/18 20:24 Dose: 20 mg Piperacillin/Tazobactam/Dextrose (Zosyn 3.375 Gm Premix) 50 mls @ 100 mls/hr IV.SIG Q6H [facility] Last Admin: 02/05/18 17:54 Dose: 100 mls/hr Sodium Chloride (Ns Inj) 1,000 mls @ 100 mls/hr IV.CONT .Q10H [facility] Last Admin: 02/05/18 15:20 Dose: Not Given Vancomycin HCl 1,000 mg/ (Sodium Chloride) 250 mls @ 250 mls/hr IV.SIG Q24H [facility] Last Infusion: 02/04/18 22:30 Dose: Infused Metoprolol Tartrate (Lopressor) 25 mg PO BID [facility] Last Admin: 02/05/18 09:07 Dose: 25 mg Morphine Sulfate (Morphine Inj) 2 mg IV.PUSH Q4H PRN PRN Reason: PAIN SCALE 6 TO 10 Last Admin: 02/05/18 03:59 Dose: 2 mg Ondansetron HCl (Zofran Inj) 4 mg IV.PUSH Q8H PRN PRN Reason: NAUSEA Pregabalin (Lyrica) 100 mg PO BID [facility] Last Admin: 02/05/18 09:07 Dose: 100 mg Timolol Maleate (Timoptic 0.5% Drops) 1 drops EACH EYE DAILY [facility] Last Admin: 02/05/18 09:07 Dose: 1 drops Allergies Allergy/AdvReac Type Severity Reaction Status Date / Time Decongestants Allergy Mild Rash Uncoded 02/03/18 23:43 Home Medications Medication Instructions Recorded Confirmed Type aspirin [Aspirin Low Dose] 81 mg PO QPM 01/27/18 02/03/18 History clopidogrel [Plavix] 75 mg PO DAILY 01/27/18 02/03/18 History coenzyme Q10 [Co Q-10] 200 mg PO QPM 01/27/18 02/03/18 History metoprolol tartrate 25 mg PO BID 01/27/18 02/03/18 History [id number] acid-lutein [Centrum 1 tab PO DAILY 01/27/18 02/03/18 History Silver] niacin [Slo-Niacin] 500 mg PO BID 01/27/18 02/03/18 History nitroglycerin 0.4 mg SUBLINGUAL Q5-15M PRN 01/27/18 02/03/18 History omega-3 fatty acids-fish oil [Fish 1 cap PO BID 01/27/18 02/03/18 History Oil] pregabalin [Lyrica] 100 mg PO BID 01/27/18 02/03/18 History simvastatin 5 mg PO Q OTHER DAY 01/27/18 02/03/18 History timolol maleate [Timoptic] 1 drp EACH EYE DAILY 02/03/18 02/03/18 History Exam Vital signs: Vital Signs 02/04/18 20:00 02/05/18 00:00 02/05/18 04:00 Temperature 98.9 F 97.6 F 97.7 F Pulse Rate 81 76 79 Respiratory Rate 15 16 16 Blood Pressure 173/80 H 138/75 179/90 H Pulse Oximetry 96 94 L 95 02/05/18 08:00 02/05/18 12:00 02/05/18 16:29 Temperature 97.9 F 97.3 F L 97.8 F Pulse Rate 86 77 63 Respiratory Rate 20 20 20 Blood Pressure 156/89 H 169/80 H 156/74 H Pulse Oximetry 95 95 94 L Intake & Output 02/05/18 02/05/18 02/06/18 06:59 18:59 06:59 Intake Total 520 / 520 650 / 650 Output Total 935 / 935 265 / 265 Balance -415 / -415 385 / 385 Intake: IV 400 / 400 50 / 50 Zosyn 3.375 GM Premix 50 ML @ 150 / 150 50 / 50 100 mls/hr IV.SIG Q6H JOLEEN Rx#: [id number] Vancomycin Inj 1,000 MG In NS 250 / 250 Inj 250 ML @ 250 mls/hr IV.SIG Q24H JOLEEN Rx#:[id number] Oral 120 / 120 600 / 600 Output: Urine 850 / 850 225 / 225 Wound Drainage 85 / 85 40 / 40 Right Anterior Abdomen 85 / 85 40 / 40 Other: # Voids 2 Date of Last Bowel Movement 02/02/18 02/05/18 # Bowel Movements 1 - Constitutional no acute distress, average body habitus - Routine HEENT Exam Head: Present: normocephalic, atraumatic Eye: Present: EOMI, PERRL ENT: Present: mucous membranes moist, oropharynx clear - Routine Neck Exam Present: supple. Absent: JVD - Routine Respiratory Exam Present: CTA bilaterally. Absent: accessory muscle use, rales, respiratory distress, rhonchi - Routine Cardiovascular Exam Present: RRR, S1, S2. Absent: murmur, gallop, rubs - Routine Abdominal Exam Present: soft, normoactive bowel sounds, distended (mildly), drain (in place with grossly purulent drainage). Absent: tenderness, organomegaly, mass - Routine Extremities Exam Present: full ROM. Absent: cyanosis, clubbing, edema - Routine Skin Exam Present: dry, warm. Absent: rash - Routine Neurological Exam Present: alert, oriented X3, CN II-XII intact, moving all extremities, hearing grossly intact, normal speech - Routine Psychiatric Exam Present: normal affect, normal thought process, cooperative Results - Labs CBC & Chem 7: 02/05/18 04:36 02/05/18 04:36 Labs: Laboratory Results - last 24 hr 02/05/18 02/05/18 04:36 04:36 WBC 8.2 RBC 3.35 L Hgb 11.4 L D Hct 33.1 L MCV 98.8 MCH 34.0 MCHC 34.4 RDW 14.8 Plt Count 446 MPV 7.5 Neut % (Auto) 70.1 H Lymph % (Auto) 14.8 [place] % (Auto) 11.2 H Eos % (Auto) 3.3 Baso % (Auto) 0.6 Neut # (Auto) 5.7 Lymph # (Auto) 1.2 [place] # (Auto) 0.9 Eos # (Auto) 0.3 Baso # (Auto) 0.1 WBC Differential . Differential Comment Auto diff final Sodium 141 Potassium 4.0 Chloride 105 D Carbon Dioxide 25.5 Anion Gap 11 BUN 12 Creatinine 0.87 Estimated GFR 86 L Random Glucose 94 Calcium 8.4 L Magnesium 2.5 - Imaging Abscess Drainage CT 02/04/18 17:48 CONCLUSION: 1. Uncomplicated CT guided drainage of an intrahepatic abscess yielding just over 100 mL of purulent material. Samples were sent to the lab.. Assessment and Plan - Plan Bacterial liver abscess sp IR drainage No known/suspected colonic pathology, sp negative coloscopy 4 yrs ago cont zosyn will follow clx untill final further rec's to follow per clx result and clinical progress
[2018-02-05] MEDS: Vancomycin Inj 1,000 MG in Sodium Chlor 0.9% Inj 250 ML IV.SIG SCH (20:52)
[2018-02-06] MEDS: Piperacil/Tazo 3.375 GM Premix 50 ML IV.SIG SCH ×4 (06:08→23:51)
[2018-02-06 07:03] LABS: Hematocrit 34.6 % (39.0-51.0); Hemoglobin 11.6 gm/dL (13.0-17.0)
[2018-02-06] MEDS: Timolol 0.5% Drops 5 ML Bottle EACH EYE SCH (08:34)
[2018-02-06] MEDS: Metoprolol Tartrate 25 MG Tablet PO SCH ×2 (08:34→21:30)
--- NOTE | 2018-02-06 13:05 | P.PNIM ---
Subjective Interval history: Patient does not have any complaints today. He states that he feels well and his abdominal pain that he was having admission has improved. Physical Exam Vital signs: Vital Signs 02/05/18 16:29 02/05/18 20:00 02/06/18 00:00 Temperature 97.8 F 97.9 F 97.6 F Pulse Rate 63 79 83 Respiratory Rate 20 18 18 Blood Pressure 156/74 H 155/73 H 160/71 H Pulse Oximetry 94 L 96 97 02/06/18 08:00 02/06/18 12:00 Temperature 97.9 F 97.7 F Pulse Rate 87 80 Respiratory Rate 16 16 Blood Pressure 134/79 161/80 H Pulse Oximetry 96 95 Intake & Output 02/05/18 02/06/18 02/06/18 18:59 06:59 18:59 Intake Total 650 / 650 640 / 640 Output Total 265 / 265 Balance 385 / 385 630 / 630 Weight 84.1 kg Intake: IV 50 / 50 400 / 400 Zosyn 3.375 GM Premix 50 ML @ 50 / 50 150 / 150 100 mls/hr IV.SIG Q6H JOLEEN Rx#: [id number] Vancomycin Inj 1,000 MG In NS 250 / 250 Inj 250 ML @ 250 mls/hr IV.SIG Q24H JOLEEN Rx#:[id number] Oral 600 / 600 240 / 240 Output: Urine 225 / 225 Wound Drainage 40 / 40 Right Anterior Abdomen 40 / 40 Other: # Voids 2 3 Date of Last Bowel Movement 02/05/18 02/05/18 # Bowel Movements 1 1 Narrative: General patient is in no acute distress. HEENT extraocular movements are intact, clear oropharyngeal mucosa, no JVD Cardiovascular S1-S2 audible, RRR, no murmurs rubs or gallops Respiratory clear to auscultation bilaterally Abdomen soft, normal bowel sounds, drain is in place on the right side. Extremities no edema 2+ distal pulses in bilateral upper and lower extremities Neuro cranial nerves II through XII intact Results - Labs CBC & Chem 7: 02/06/18 05:33 02/05/18 04:36 Laboratory Results - last 24 hr 02/06/18 05:33 Hgb 11.6 L Hct 34.6 L Microbiology 02/03/18 21:35 Blood - Peripheral Aerobic Blood Culture - Preliminary No growth in 3 days 02/03/18 21:35 Blood - Peripheral Anaerobic Blood Culture - Preliminary No growth in 3 days 02/03/18 21:30 Blood - Peripheral Aerobic Blood Culture - Preliminary No growth in 3 days 02/03/18 21:30 Blood - Peripheral Anaerobic Blood Culture - Preliminary No growth in 3 days 02/04/18 12:15 Fluid - Other Gram Stain - Final 02/04/18 12:15 Fluid - Other Body Fluid Culture - Preliminary Staphylococcus aureus Viridans streptococcus grp Assessment and Plan - Plan 72-year-old male with a past medical history significant for coronary artery disease, coronary artery bypass graft, hypertension, hyperlipidemia and neuropathy presents to the emergency department for evaluation of an abnormal CT scan. 1. Sepsis secondary to liver abscess/leukocytosis The patient's leukocytosis has resolved. He has remained afebrile overnight. Pulmonary culture growing strep viridans, sensitivity is pending. ID is following the patient will follow up with recommendations. I had a discussion with the interventional radiologist Dr. Collins today regarding the drain. He says that his team will come up today and the drain will be changed. After the drain is changed the patient may possibly be discharged with the drain in place tomorrow and follow-up outpatient in their clinic for removal of the drain after approximately 1 week. Continue IV antibiotics. 2. Coronary artery disease and history of CABG. We will follow-up hemoglobin today. If normal he will be restarted on aspirin, Plavix. 3. Hypertension/hyperlipidemia Continue home metoprolol. The patient will be started on amlodipine today. Holding pharmacotherapy for DVT prophylaxis as the patient had a procedure done recently.
[2018-02-06] MEDS: amLODIPine 5 MG Tablet PO SCH (15:17)
[2018-02-06] MEDS: Vancomycin Inj 1,000 MG in Sodium Chlor 0.9% Inj 250 ML IV.SIG SCH (21:30)
[2018-02-07] MEDS: Piperacil/Tazo 3.375 GM Premix 50 ML IV.SIG SCH ×2 (06:00→12:30)
[2018-02-07] MEDS: amLODIPine 5 MG Tablet PO SCH (09:19)
[2018-02-07] MEDS: Timolol 0.5% Drops 5 ML Bottle EACH EYE SCH (09:20)
[2018-02-07] MEDS: Metoprolol Tartrate 25 MG Tablet PO SCH (09:20)
--- NOTE | 2018-02-07 14:57 | P.DS ---
Date of admission: 02/03/18 18:26 Primary care physician: UNKNOWN Brief History from admission: 72-year-old male with a past medical history significant for coronary artery disease, hypertension, hyperlipidemia and neuropathy presents to the emergency department for evaluation of an abnormal CT scan. Patient reports that approximately 10 days ago after attending a [facility] he had abdominal cramping and pain that has been persistent since that time. He reports his pain is sometimes in his right upper quadrant and sometimes in other areas of his abdomen and that it often will radiate to his right flank. He reports nausea and vomiting. Also complains of night sweats. He has had a low-grade fever for the past week. He was seen by his primary care provider who ordered outpatient labs and a CT scan however the patient underwent cardiac catheterization 1 week ago prior to completing these tests. Outpatient CT scan performed today concerning for 2 liver abscesses. Laboratory values significant for leukocytosis. Patient denies chest pain or shortness of breath. He then came into our facility for evaluation and care. DS: Medications - Discharge Medications Prescriptions: levofloxacin 750 mg PO DAILY #10 tab DS: Summary Hospital Course: 72-year-old male with a past medical history significant for coronary artery disease, coronary artery bypass graft, hypertension, hyperlipidemia and neuropathy presents to the emergency department for evaluation of an abnormal CT scan of the abdomen. 1. Sepsis secondary to liver abscess/leukocytosis The patient presented with complaints of some abdominal pain mostly in the right upper quadrant. CT scan of the abdomen pelvis showed a an abscess developing. Patient had an elevated leukocytosis and was found to be tachycardic on examination. Interventional radiology was consulted to evaluate the patient. He was started on IV antibiotics and he subsequently underwent drainage of the abscess by IR. Labs showed a resolution in his leukocytosis. Blood cultures are negative. Culture from the drainage was positive for strep viridans which is sensitive to Levaquin. He has received 4 days of antibiotic treatment while in-house. He will be discharged with 10 days of p.o. Levaquin. Patient should follow-up with Dr. Collins from interventional radiology for management and removal of the drain in 1 week. The patient was advised to seek immediate medical attention if he begins to have fevers, chills, or significant abdominal pain. Infectious disease also evaluated the patient during the hospitalization. 2. Coronary artery disease and history of CABG. 3. Hypertension 4. Dyslipidemia Continue aspirin, Plavix, statin, beta-roscoe. - Time Spent with Patient Total time spent providing and/or coordinating discharge services: Greater than 30 minutes - Quality: VTE Deep Vein Thrombosis/Pulmonary Embolism Present on Admission: No Exam Vital signs: Vital Signs 02/06/18 16:00 02/06/18 20:00 02/07/18 00:00 Temperature 98.7 F 97.6 F 97.2 F L Pulse Rate 85 96 H 82 Respiratory Rate 16 18 18 Blood Pressure 164/79 H 147/85 H 155/81 H Pulse Oximetry 97 93 L 94 L 02/07/18 08:00 02/07/18 11:54 Temperature 98 F 97.6 F Pulse Rate 93 H 87 Respiratory Rate 18 18 Blood Pressure 147/85 H 137/71 Pulse Oximetry 95 96 Intake & Output 02/06/18 02/07/18 02/07/18 18:59 06:59 18:59 Intake Total 1820 / 1820 350 / 350 Output Total 5 / 5 1350 / 1350 Balance 1815 / 1815 -1000 / -1000 Weight 83.9 kg Intake: IV 1100 / 1100 350 / 350 NS Inj 1,000 ML @ 100 mls/hr IV 1000 / 1000 .CONT .Q10H JLOEEN Rx#:[id number] Zosyn 3.375 GM Premix 50 ML @ 100 / 100 100 / 100 100 mls/hr IV.SIG Q6H JOLEEN Rx#: [id number] Vancomycin Inj 1,000 MG In NS 250 / 250 Inj 250 ML @ 250 mls/hr IV.SIG Q24H JOLEEN Rx#:[id number] Oral 720 / 720 Output: Urine 3 / 3 1350 / 1350 Stool 2 / 2 Wound Drainage 0 / 0 Right Anterior Abdomen 0 / 0 Other: # Voids 2 Date of Last Bowel Movement 02/05/18 02/06/18 02/07/18 # Bowel Movements 1 Narrative: General patient in no acute distress HEENT extraocular movements are intact, clear oropharyngeal mucosa, no JVD Cardiovascular S1-S2 audible, RRR, no murmurs rubs or gallops Respiratory clear to auscultation bilaterally Abdomen soft, nontender, nondistended, normal bowel sounds. Right sided drain in place. No signs of infection near the drain site. Extremities no edema 2+ distal pulses in bilateral upper and lower extremities Neuro cranial nerves II through XII intact, patient is ambulatory. Results Procedures completed during hospitalization: RI performed drainage of the liver abscesses. Labs on day of discharge: Preliminary micro results at discharge 02/03/18 21:35 Aerobic Blood Culture - Preliminary Blood - Peripheral No growth in 4 days Anaerobic Blood Culture - Preliminary No growth in 4 days 02/03/18 21:30 Aerobic Blood Culture - Preliminary Blood - Peripheral No growth in 4 days Anaerobic Blood Culture - Preliminary No growth in 4 days - Impressions ITS Impressions Abscess Drainage CT 02/04/18 17:48 CONCLUSION: 1. Uncomplicated CT guided drainage of an intrahepatic abscess yielding just over 100 mL of purulent material. Samples were sent to the lab.. Discharge Plan - Discharge Disposition Patient Disposition: Discharge Home - Discharge Condition Condition: Good - Discharge Order Discharge Orders: Discharge Order (Routine); Ordered 02/07/18 Ordered By: Massimo Poe - Physicians Team Primary Care Provider: UNKNOWN, Attending Provider: Massimo Poe Other Providers: Laura Triana MD
[2018-02-07 16:31] VITALS: BP 142/72; PULSE 88; RESP 16; TEMP 97.4; O2SAT 97
[2018-02-08] MEDS ORDERED: levoFLOXacin 750 MG Tablet PO SCH (09:00)
== END 2018-02-07 17:00 | disposition home or self-care (01) ==
LOC: NEPC 15:37 → NEDA 18:26 → N06 22:32
PROVIDERS: ADMIT Hospitalist; ATTEND Hospitalist